=== PATIENT | female | born 1970 | race Caucasian/White ===

== ENCOUNTER 2019-04-05 18:46 | Emergency (ER) | payer OTHER ==
[~2019-04-05] VITALS: Ht 160 cm; Wt 70.3 kg
--- OUTSIDE RECORDS SUMMARY | 2019-04-05 18:49 | XMS REPORT ---
Author [facility] Address Unknown Phone Unavailable Care Team Providers Care Soil Conservation Technician Name Role Phone Unavailable Unavailable Payers Payer Name Policy Type Policy Number Effective Date Expiration Date Problems This patient has no known problems. Allergies, Adverse Reactions, Alerts Allergy Name Allergy Type Status Severity Reaction(s) Onset Date Inactive Date Treating Clinician Comments No Known Allergies DA Active U 2016-03-17 00:00:00 Medications This patient has no known medications.
--- OUTSIDE RECORDS SUMMARY | 2019-04-05 18:49 | XMS REPORT ---
Author Organization Unknown Address [address] [place] [address] Phone [phone] Care Team Providers Care Senior Research Analyst Name Role Phone VANESA GONZALEZ MD 124 [phone] Allergies Code Code System Name Reaction Severity Status Onset NKDA Medications Name Status Start Date Stop Date amoxicillin 875 mg-potassium clavulanate 125 mg tablet Active Not available dexamethasone 4 mg/mL injection solution Take 2 mL by injection route. Completed 11/23/2017 duloxetine 30 mg capsule,delayed release Active Not available gabapentin 300 mg capsule Completed 11/23/2017 ibuprofen 800 mg tablet Completed 07/06/2017 lisinopril 10 mg tablet Take 1 tablet every day by oral route. Active Not available lorazepam 1 mg tablet Active Not available methylprednisolone 4 mg tablets in a dose pack Completed 11/23/2017 oxycodone-acetaminophen 10 mg-325 mg tablet Completed 07/06/2017 oxymorphone 10 mg tablet Completed 07/06/2017 oxymorphone ER 20 mg tablet,extended release,12 hr Completed 07/06/2017 oxymorphone ER 30 mg tablet,extended release,12 hr Completed 07/06/2017 oxymorphone ER 40 mg tablet,extended release,12 hr Completed 07/06/2017 pantoprazole 20 mg tablet,delayed release Take 2 tablets every day by oral route. Active Not available sulfamethoxazole 800 mg-trimethoprim 160 mg tablet Completed 07/06/2017 Suprep Bowel Prep Kit 17.5 gram-3.13 gram-1.6 gram oral solution Completed 11/23/2017 Problems No Known Problems Procedures Date Name Performed by 09/07/2001 Neurosurgery Information not available 09/07/2000 Hysterectomy (Partial) Information not available 09/07/1997 Cholecystectomy Information not available Notes: STEM [id number] Lab Results Date Name Specimen Result Interpretation Description Value Range Status Address 11/23/2017 CMP, Serum or Plasma Alt 40 U/L 0-55 U/L [facility]: [address] [place] [address] Ast 24 U/L 5-34 U/L Final [facility]: [address] [place] [address] Bun 13.8 mg/dL 7.0-18.7 mg/dL Final [facility]: [address] [facility] Alk Phos 81 unit/L 40-150 unit/L Final [facility] [address] [facility] Glucose 90 mg/dL 70-99 mg/dL Final [facility]: [address] Albumin 4.0 g/dL 3.5-5.0 g/dL Final [facility]: [address] [place] [address] Creatinine 0.76 mg/dL 0.57-1.11 mg/dL Final [facility]: [address] eGFR Non- >60 mL/min/1.73m2 >60 mL/min/1.73m2 Final [facility]: [address] Total Bilirubin 0.6 mg/dL 0.2-1.2 mg/dL Final [facility]: [address] eGFR - >60 mL/min/1.73m2 >60 mL/min/1.73m2 Final [facility]: [address] [facility] Sodium 139 mEq/L 136-145 mEq/L Final [facility]: [address] [place] [address] Potassium 5.1 mEq/L 3.5-5.1 mEq/L Final [facility]: [address] Chloride 102 mmol/L 98-107 mmol/L Final [facility]: [address] Total Protein 7.8 g/dL 6.4-8.3 g/dL Final [facility]: [address] [place] [address] Calcium 9.8 mg/dL 8.4-10.2 mg/dL Final [facility]: [address] Co2 26.1 mmol/L 22.0-29.0 mmol/L Final [facility]: [address] Anion Gap 11 calc Final [facility]: [address] [facility] 11/23/2017 Lipid Panel, Serum High Hdl 75 mg/dL 40-60 mg/dL Final [facility]: [address] [place] [address], [place] Triglyceride 86 mg/dL 0-149 mg/dL Final [facility]: [address] [place] [address], [place] VLDL Calc. 17 mg/dL Final [facility]: [address] [place] [address], [place] cholesterol/HDL Ratio 3.3 mg/dL Final [facility]: [address] [place] [address], [place] High non-HDL Cholesterol Calc. 176 mg/dL 0-160 mg/dL Final [facility]: [address] [place] [address], [place] High Cholesterol 251 mg/dL 0-199 mg/dL Final [facility]: [address] [place] [address], [place] High LDL Calc. 159 mg/dL 0-130 mg/dL Final [facility]: [address] [place] [address], [place] 11/23/2017 HbA1C (Hemoglobin a1C), Blood High A1C W/eag 5.9 % 1.0-5.7 % Final [facility]: [address] [place] [address], [place] Average Blood Glucose 123 mg/dL Final [facility]: [address] [place] [address], [place] Past Encounters 11/30/2017 Essential Hypertension Gerald Velez MD: [address] [place] [phone], Ph. 11/23/2017 Essential Hypertension; Type II Diabetes Mellitus Uncontrolled Gerald Velez MD: [address] [place] [phone], Ph. 11/19/2017 Lo Arteaga: [address] [facility], [address], [place] [address], Ph. 07/06/2017 Body Mass Index 25-29 - Overweight; Acute Sinusitis; History of Peptic Ulcer Gerald Velez MD: [address] [place] [phone], Ph. Social History Smoking Status Never Smoker Vaccine List Notes: none per pt 11/23/17-gg Plan of Care Patient Instructions continue bp monitoring < wgt/salt>exercise if possible rtc 1 month rtc 1week otc mucinex -d Reminders Provider Appointments None recorded. Lab None recorded. Referral None recorded. Procedures None recorded. Surgeries None recorded. Imaging None recorded. Vitals 11/30/2017 04:00PM Est Patient Height Weight Blood Pressure 5 ft 3 in 126/90 mm[Hg] 11/23/2017 03:45PM TCM Height Weight BMI Blood Pressure 5 ft 3 in 152 lbs 26.9 kg/m2 (1) 130/100 mm[Hg] (2) 128/98 mm[Hg] 07/06/2017 02:15PM Est Patient Height Weight BMI Blood Pressure 5 ft 3 in 156 lbs 27.6 kg/m2 116/88 mm[Hg]
[2019-04-05] MEDS: CEFTRIAXONE SOD 1 GM VIAL IM ONE (19:58)
[2019-04-05] MEDS ORDERED: CEFTRIAXONE SOD 1 GM VIAL ONE (19:58)
[2019-04-05] MEDS ORDERED: LIDOCAINE HCL 1% LOCAL INJ 20 ML VIAL ONE (19:58)
[2019-04-05 20:18] VITALS: BP 107/72
== END 2019-04-05 20:21 | disposition home or self-care (01) ==
LOC: FSED 18:46
DX: N30.00 Acute cystitis without hematuria (principal); R10.2 Pelvic and perineal pain
CPT/HCPCS: 81003; 81025; 99283; J0696; J2001